=== PATIENT | male | born 1995 | race Caucasian/White ===

== ENCOUNTER 2018-10-22 16:44 | Emergency (ER) | payer SELFPAY ==
[~2018-10-22] VITALS: Ht 172.7 cm; Wt 100.0 kg
[2018-10-22] MEDS ORDERED: KETOROLAC TROMETHAMINE 60 MG/2 ML VIAL IM ONE (17:00)
[2018-10-22 18:34] VITALS: BP 120/66
== END 2018-10-22 19:09 | disposition home or self-care (01) ==
LOC: EMS 16:46
DX: M25.512 Pain in left shoulder (principal); W18.39XA Other fall on same level, initial encounter; Y93.66 Activity, soccer; Y92.89 Other specified places as the place of occurrence of the external cause; Y99.8 Other external cause status
CPT/HCPCS: 73030; 96372; 99283; J1885

== ENCOUNTER 2018-10-31 14:46 | Emergency (ER) | payer SELFPAY ==
[~2018-10-31] VITALS: Ht 170.2 cm; Wt 95.5 kg
[2018-10-31 14:58] VITALS: BP 136/74
== END 2018-10-31 16:58 | disposition home or self-care (01) ==
LOC: EMS 14:47
DX: Z02.89 Encounter for other administrative examinations (principal); R03.0 Elevated blood-pressure reading, without diagnosis of hypertension; J45.909 Unspecified asthma, uncomplicated; F17.210 Nicotine dependence, cigarettes, uncomplicated